=== PATIENT | male | born 1990 | race Caucasian/White ===

== ENCOUNTER 2022-08-09 15:08 | Emergency (ER) | payer OTHER ==
[~2022-08-09] VITALS: Ht 177.8 cm; Wt 68.2 kg
[2022-08-09] MEDS ORDERED: TETRACAINE 0.5% OPHTH SOLN 4ML OU ONE (16:25)
[2022-08-09] MEDS ORDERED: KETOROLAC 30 MG/ML 1ML VIAL IM ONE (16:50)
[2022-08-09] MEDS ORDERED: RIZA10TA64 PO (16:54)
[2022-08-09 17:03] VITALS: BP 135/88
== END 2022-08-09 17:18 | disposition home or self-care (01) ==
LOC: M ED 15:08
DX: G43.909 Migraine, unspecified, not intractable, without status migrainosus (principal); Z79.52 Long term (current) use of systemic steroids
CPT/HCPCS: 70450; 96372; 99283; J1885